=== PATIENT | female | born 1975 | race Caucasian/White ===

== ENCOUNTER 2021-03-21 17:04 | Emergency (ER) | payer OTHER ==
[~2021-03-21] VITALS: Ht 167.6 cm; Wt 124.7 kg
[~2021-03-21 17:04] MED LIST: BENADRYL25 MG PO; COLACE1 EAC1 RC; HYDROCODON-ACE1 EA10 PO; NORCO 5-325 TA1 EACH PO; PHENTERMINE H37.5 MG PO
[2021-03-21] MEDS ORDERED: METOPROLOL TART25 MG PO (17:34)
[2021-03-21] MEDS ORDERED: CELECOXIB200 MG PO (17:34)
[2021-03-21] MEDS ORDERED: HYDROCODON-ACE1 EAC7 PO (17:34)
[2021-03-21] MEDS ORDERED: TEMAZEPAM30 MG PO (17:35)
[2021-03-21] MEDS ORDERED: AMLODIPINE BESY10 MG PO (17:35)
[2021-03-21] MEDS ORDERED: BUPROPION HCL150 MG PO (17:35)
[2021-03-21] MEDS ORDERED: MEDROLDOSEPACK PO (18:40)
[2021-03-21] MEDS ORDERED: FLEXERIL PO (18:40)
[2021-03-21 19:01] VITALS: BP 157/100
== END 2021-03-21 19:01 | disposition home or self-care (01) ==
LOC: ER 17:04
DX: M25.512 Pain in left shoulder (principal); I10 Essential (primary) hypertension; Z79.899 Other long term (current) drug therapy; Z88.0 Allergy status to penicillin